=== PATIENT | male | born 1990 | race Caucasian/White ===

== ENCOUNTER 2016-06-19 01:16 | Emergency (ER) | payer SELFPAY ==
[~2016-06-19] VITALS: Ht 167.6 cm; Wt 54.0 kg
[2016-06-19] MEDS ORDERED: CARAFATE1 G1 ORAL (01:26)
[2016-06-19 02:00] VITALS: BP 105/62
[2016-06-19] MEDS ORDERED: BENADRYL25 MG ORAL (02:08)
[2016-06-19] MEDS ORDERED: CLINDAMYCIN HC300 MG ORAL (02:08)
--- NOTE | 2016-06-19 02:08 | Emergency Room Report ---
History of Present Illness General Chief Complaint: Skin Rash/Abscess Source: Patient Present Illness HPI Is a 26-year-old male with history of severe gastritis. [place] He just got here a few days ago. He moved into a furnished apartment. The last few days he has. Rash on his body. His itching. No fever or chills. No other exposure. Is worried that maybe bedbugs. Denies any nausea vomiting. Denies any fever. Allergies: Coded Allergies: ERYTHROMYCIN BASE (Verified Allergy, Unknown, 06/19/16) SULFA (SULFONAMIDE ANTIBIOTICS) (Verified Allergy, Unknown, 06/19/16) Patient History Past Medical History: see triage record, old chart reviewed Past Surgical History: none Pertinent Family History: none Social History: Denies: smoking Immunizations: other Reviewed Nursing Documentation: PMH: Agreed, PSxH: Agreed Nursing Documentation-PM Hx Gastrointestinal Problems: Yes - GASTRITIS Review of Systems Eye: Denies: blurred vision, eye pain ENT: Denies: ear pain, nose congestion, throat swelling Respiratory: Denies: cough, shortness of breath Cardiovascular: Denies: chest pain, palpitations Gastrointestinal: Denies: abdominal pain, diarrhea, nausea, vomiting Musculoskeletal: Denies: back pain, joint pain Skin: Reports: rash Neurological: Denies: headache, numbness Endocrine: Denies: increased thirst, increased urine Hematologic/Lymphatic: Denies: easy bruising All Other Systems: negative except mentioned in HPI Physical Exam Vital Signs Date Time Temp Pulse Resp B/P Pulse Ox O2 Delivery O2 Flow Rate FiO2 06/19/16 01:18 98.4 65 16 112/71 96 Room Air vitals normal Sp02 EP Interpretation: reviewed, normal General Appearance: well appearing, no apparent distress, alert Head: normocephalic, atraumatic Eyes: bilateral eye EOMI, bilateral eye PERRL ENT: hearing grossly normal, normal pharynx Neck: full range of motion, supple, no meningismus Respiratory: chest non-tender, lungs clear, normal breath sounds Cardiovascular #1: regular rate, rhythm, no murmur Gastrointestinal: normal bowel sounds, non tender, no mass, no organomegaly, no bruit, non-distended Musculoskeletal: back normal, gait/station normal, normal range of motion Neurologic: alert, oriented x3 Psychiatric: mood/affect normal Skin: warm/dry, rash - red welts scattered throughout body. Medical Decision Making Diagnostic Impression: Primary Impression: Rash and other nonspecific skin eruption Additional Impression: Bed bug bite Qualified Codes: W57.XXXA - Bitten or stung by nonvenomous insect and other nonvenomous arthropods, initial encounter ER Course Is presents with a rash. Blotchy and red. Most likely bedbugs. No evidence of abscess. Could be cellulitis. No evidence of necrotizing fasciitis. We'll discharge home. Last Vital Signs Date Time Temp Pulse Resp B/P Pulse Ox O2 Delivery O2 Flow Rate FiO2 06/19/16 01:18 98.4 65 16 112/71 96 Room Air Status: unchanged Disposition: HOME, SELF-CARE Condition: Stable Scripts Diphenhydramine Hcl* (BENADRYL*) 25 Mg Capsule 50 MG ORAL Q6H Y for Itching, #30 CAP Prov: HEBER LUCERO M.D. 06/19/16 Clindamycin Hcl (CLINDAMYCIN HCL) 300 Mg Capsule 300 MG ORAL THREE TIMES A DAY, #21 CAP Prov: HEBER LUCERO M.D. 06/19/16 Referrals: NOT CHOSEN IPA/,REFERRING (PCP) Additional Instructions: Followup with your DrBecky in 7 days. Return if symptom worsen. HEBER LUCERO M.D. Jun 19, 2016 02:08
[2016-06-19] MEDS ORDERED: DiphenhydrAMINE 50mg/ml Inj IM ONE (02:15)
[2016-06-19 02:20] VITALS: BP 105/62
== END 2016-06-19 02:21 | disposition home or self-care (01) ==
LOC: EMR 01:45
DX: R21 Rash and other nonspecific skin eruption (principal); T14.8 Other injury of unspecified body region; W57.XXXA Bitten or stung by nonvenomous insect and other nonvenomous arthropods, initial encounter; Y92.039 Unspecified place in apartment as the place of occurrence of the external cause; Z88.2 Allergy status to sulfonamides; Z88.1 Allergy status to other antibiotic agents
CPT/HCPCS: 96372; 99284; J1200